=== PATIENT | female | born 1995 | race African-American/Black ===

== ENCOUNTER 2017-04-07 17:43 | Emergency (ER) | payer MEDICAID, MEDICARE ==
[~2017-04-07] VITALS: Ht 165.1 cm; Wt 58.6 kg
[2017-04-07 18:16] VITALS: BP 132/83
== END 2017-04-07 23:49 | disposition left against medical advice (07) ==
LOC: ER 20:02
DX: R10.9 Unspecified abdominal pain (principal); Z53.21 Procedure and treatment not carried out due to patient leaving prior to being seen by health care provider

== ENCOUNTER 2022-08-04 17:15 | Emergency (ER) | payer MEDICAID, MEDICARE, OTHER ==
[~2022-08-04] VITALS: Ht 167.6 cm; Wt 75.0 kg
[2022-08-04] MEDS ORDERED: IBUPROFEN 400MG TABLET PO ONE (18:30)
[2022-08-04] MEDS ORDERED: DEXAMETHASONE 4MG TABLET PO ONE (18:30)
[2022-08-04] MEDS ORDERED: GUAI200T5 MT (19:30)
[2022-08-04] MEDS ORDERED: TOPUD PO (19:30)
[2022-08-04] MEDS ORDERED: IBUP-2028 MT (19:30)
[2022-08-04 19:45] VITALS: BP 124/77
== END 2022-08-04 19:45 | disposition home or self-care (01) ==
LOC: ER 17:15
DX: J10.1 Influenza due to other identified influenza virus with other respiratory manifestations (principal); Z20.822 Contact with and (suspected) exposure to COVID-19
CPT/HCPCS: 71045; 81025; 87426; 87804; 99284; C9803; J8540

== ENCOUNTER 2022-09-04 10:44 | Emergency (ER) | payer MEDICAID, OTHER ==
[~2022-09-04] VITALS: Ht 170.2 cm; Wt 72.0 kg
[~2022-09-04 10:44] MED LIST: GUAI200T5 MT; IBUP-2028 MT; TOPUD PO
[2022-09-04] MEDS ORDERED: ACETAMINOPHEN 325MG TABLET PO ONE (13:00)
[2022-09-04] MEDS ORDERED: IBUPROFEN 400MG TABLET PO ONE (13:00)
[2022-09-04 14:05] VITALS: BP 136/70
[2022-09-04 14:57] LABS: BASOPHILS % 0.5 % (0.0-2.0); EOSINOPHILS % 0.5 % (0.0-5.0); HEMATOCRIT. 37.6 % (36.0-48.0); HEMOGLOBIN. 13.2 g/dL (12.0-16.0); LYMPHOCYTES % 27.9 % (20.0-50.0); MEAN CORPUSCULAR HEMOGLOBIN 30.7 pg (28.0-32.0); MEAN CORPUSCULAR VOLUME 87.8 fL (81.0-99.0); MEAN PLATELET VOLUME 8.4 fl (7.4-10.4); MONOCYTES % 5.5 % (2.0-8.0); NEUTROPHILS % 65.6 % (40.0-76.0); PLATELET 272 x1000/uL (130-400); RED BLOOD CELL COUNT 4.28 mill/uL (4.2-5.4); RED CELL DISTRIBUTION WIDTH 13.1 % (11.6-14.6)
[2022-09-04 15:05] LABS: CHLORIDE 105 mEq/L (98-107)
[2022-09-04] MEDS ORDERED: IBUP-2028 MT (15:56)
== END 2022-09-04 16:06 | disposition home or self-care (01) ==
LOC: ER 11:10
DX: R07.89 Other chest pain (principal); R06.02 Shortness of breath; F12.10 Cannabis abuse, uncomplicated; Z79.899 Other long term (current) drug therapy
CPT/HCPCS: 36415; 71045; 80053; 81025; 83880; 84484; 85025; 87804; 93005; 99285

== ENCOUNTER 2022-11-20 14:00 | Emergency (ER) | payer OTHER ==
[~2022-11-20] VITALS: Ht 167.6 cm; Wt 71.0 kg
[2022-11-20 15:01] VITALS: BP 114/66
== END 2022-11-20 15:02 | disposition home or self-care (01) ==
LOC: ER 14:12
DX: N91.2 Amenorrhea, unspecified (principal)
CPT/HCPCS: 81025; 99282